=== PATIENT | male | born 1940 | race Caucasian/White ===

== ENCOUNTER 2018-12-14 11:47 | Emergency (ER) | payer MEDICARE, MEDICAID ==
[~2018-12-14] VITALS: Ht 182.9 cm; Wt 130.0 kg
[~2018-12-14 11:47] MED LIST: AMLO2.5T2 PO; GABA-534 PO; HYDR-3686 PO; LABE100T5 PO; MIRT30TA8 PO; QUET25TA34 PO; TRAZ-218 PO; VALS160T30 PO
[2018-12-14 14:23] LABS: ALANINE AMINOTRANSFERASE 26 U/L (12-78); ALBUMIN 3.6 G/DL (3.4-5.0); ALBUMIN/GLOBULIN RATIO 0.9 (1.1-1.5); ALKALINE PHOSPHATASE 85 IU/L (46-116); ANION GAP 7 (8-16); ASPARTATE AMINO TRANSFERASE 22 U/L (10-37); BILIRUBIN,TOTAL 0.6 MG/DL (0.1-1.0); BLOOD UREA NITROGEN 13 MG/DL (7-18); BUN/CREATININE RATIO 11.6 (5.4-32.0); CALCIUM 8.7 MG/DL (8.5-10.1); CHLORIDE 102 MMOL/L (99-107); CREATININE 1.12 MG/DL (0.60-1.10); ETHANOL < 0.010 GM/DL (0.0-0.010); GLUCOSE 103 MG/DL (70-104); SODIUM 134 MMOL/L (135-145); TOTAL CARBON DIOXIDE 24.7 MMOL/L (24-32); TOTAL PROTEIN 7.7 G/DL (6.4-8.2); eGFR 64 ML/MIN
--- NOTE | 2018-12-14 14:28 | NUR ---
TELEPSYCH IN PROGRESS AT THIS TIME.
[2018-12-14 14:33] LABS: URINE AMPHETAMINE SCREEN NEGATIVE (Neg); URINE BARBITUATE SCREEN NEGATIVE (Neg); URINE BENZODIAZEPINES SCREEN NEGATIVE (Neg); URINE CANNABINOID SCREEN NEGATIVE (Neg); URINE COCAINE SCREEN NEGATIVE (Neg); URINE METHADONE SCREEN NEGATIVE (Neg); URINE OPIATE SCREEN NEGATIVE (Neg); URINE PHENCYCLIDINE SCREEN NEGATIVE (Neg)
[2018-12-14 15:40] LABS: CLARITY,URINE CLEAR (Clear); COLOR,URINE YELLOW (Yellow); GLUCOSE, URINE NEGATIVE (Neg); KETONES,URINE NEGATIVE (Neg); LEUKOCYTE ESTERASE ,URINE NEGATIVE (Neg); NITRITES, URINE NEGATIVE (Neg); OCCULT BLOOD,URINE TRACE-INTACT (Neg); PROTEIN,URINE NEGATIVE (Neg); UROBILINOGEN,URINE 0.2 E.U/dL (0.2-1.0)
[2018-12-14 15:41] LABS: UA COLLECTION TYPE CLN CATCH MIDSTREAM
[2018-12-14 15:49] LABS: RBC,URINE 0-2 /HPF (0-2); WBC,URINE 0-4 /HPF (0-4)
[2018-12-14 15:50] LABS: BACTERIA,URINE FEW /HPF (Neg); MUCUS STRANDS NONE SEEN /LPF (Neg); SQUAMOUS EPITHELIAL CELL,UR FEW /LPF (FEW)
--- NOTE | 2018-12-14 16:09 | NUR ---
DISCUSSED PTS ELEVATED BP WITH ROWENA VALDES. PT TO RECEIVE PRESCRIBED BP MEDS (PT REPORTS HE HAS HAD MISSED DOSES) AND 1 MG OF PO ATIVAN
[2018-12-14] MEDS ORDERED: QUET50TA PO (16:26)
[2018-12-14] MEDS ORDERED: LOSA50TA3 PO (16:26)
[2018-12-14] MEDS ORDERED: MELO-100 PO (16:29)
[2018-12-14] MEDS ORDERED: CLON-528 PO (16:29)
[2018-12-14] MEDS ORDERED: LORazepam 1 MG tablet PO ONE ×2 (16:40→22:30)
[2018-12-14 16:43] LABS: BASOPHILS # (AUTO) 0.1 X10'3 (0-0.2); BASOPHILS % (AUTO) 1.3 % (0-1); EOSINOPHILS # (AUTO) 0.2 X10'3 (0-0.9); EOSINOPHILS % (AUTO) 2.8 % (0-6); HEMATOCRIT 47.1 % (42.0-52.0); HEMOGLOBIN 16.1 g/dl (14.0-17.9); LYMPHOCYTES # (AUTO) 2.1 X10'3 (1.1-4.8); LYMPHOCYTES % (AUTO) 24.8 % (21-51); MEAN CORPUSCULAR HEMOGLOBIN 31.4 PG (27.0-31.0); MEAN CORPUSCULAR HGB CONC 34.1 g/dL (33.0-36.5); MEAN CORPUSCULAR VOLUME 91.9 FL (78-98); MEAN PLATELET VOLUME 7.6 FL (7.4-10.4); MONOCYTES # (AUTO) 1.3 X10'3 (0-0.9); MONOCYTES % (AUTO) 15.6 % (2-12); NEUTROPHILS # (AUTO) 4.8 X10'3 (1.8-7.7); NEUTROPHILS % (AUTO) 55.5 % (42-75); PLATELET COUNT 283 X10'3 (140-440); RED BLOOD COUNT 5.13 X10'6 (4.70-6.10); RED CELL DISTRIBUTION WIDTH 13.7 % (11.5-14.5); WHITE BLOOD COUNT 8.6 X10'3 (4.5-11.0)
[2018-12-14] MEDS ORDERED: losartan 50mg tablet PO SCH (16:49)
[2018-12-14] MEDS ORDERED: amLODIPine 2.5mg tablet PO SCH (16:50)
[2018-12-14] MEDS ORDERED: naproxen 500mg tablet PO SCH (17:30)
--- NOTE | 2018-12-14 17:50 | NUR ---
SPOKE WITH PROVIDER Zuleyka ALBERTO AND UPDATED PA OF PTS CURRENT VS AND SOC RECOMMENDATIONS REPORTED.
[2018-12-14] MEDS ORDERED: clonazePAM 0.5mg tablet PO SCH (20:00)
[2018-12-14] MEDS ORDERED: labetalol 100mg tablet PO SCH (20:00)
--- NOTE | 2018-12-14 20:00 | NUR ---
PT UP TO USE THE BATHROOM, OTHERWISE RESTING QUIETLY IN BED.
[2018-12-14 20:01] VITALS: BP 154/89
[2018-12-14] MEDS ORDERED: non-formulary drug (Mirtazapine 1 TAB) PO SCH (21:00)
[2018-12-14] MEDS ORDERED: QUETIAPINE FUMARATE PO SCH (21:00)
[2018-12-14] MEDS ORDERED: QUEtiapine 25mg tablet PO SCH (21:00)
[2018-12-14] MEDS ORDERED: mirtazapine 15mg tablet PO SCH (21:00)
--- NOTE | 2018-12-14 21:02 | NUR ---
PT GIVEN EVENING MEDICATIONS, BP 154/89, PT REFUSED KLONOPIN 0.5 MG STATING IT DOESNT WORK, ASKED FOR ATIVAN INSTEAD. PT TOOK ALL OTHER MEDICATIONS WITHOUT INCIDENT
--- NOTE | 2018-12-14 22:21 | NUR ---
PT ACCEPTED AT [facility] TO COME TO TRANSPORT PT. REPORT CALLED TO AMAN JOHNSTON AT [facility]. PT SLEEPING AT THIS TIME, BUT WAKES FREQUENTLY AND ASKES FOR ATIVAN AND FOOD, THEN FALLS BACK TO SLEEP.
[2018-12-15] MEDS ORDERED: MELOXICAM 15 MG PO SCH (08:00)
== END 2018-12-14 23:20 ==
LOC: ER 11:48
DX: F32.9 Major depressive disorder, single episode, unspecified (principal); R45.851 Suicidal ideations; F41.9 Anxiety disorder, unspecified; E66.9 Obesity, unspecified; Z88.5 Allergy status to narcotic agent; Z79.899 Other long term (current) drug therapy
CPT/HCPCS: 36415; 80053; 80305; 80320; 81001; 85025; 99285